=== PATIENT | female | born 1960 | race Caucasian/White ===

== ENCOUNTER 2016-07-29 19:32 | Emergency (ER) | payer OTHER ==
[~2016-07-29] VITALS: Ht 160 cm; Wt 65.9 kg
[2016-07-29 19:37] VITALS: BP 131/74; PULSE 76; RESP 18; O2SAT 99
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
[2016-07-29] MEDS ORDERED: CYCL5TAB PO (21:58)
[2016-07-29] MEDS ORDERED: IBUP800T28 PO (21:59)
== END 2016-07-29 22:23 | disposition home or self-care (01) ==
LOC: EDUNIT# 19:32 → MERGE 19:32 → EDBD 19:32 → SED 19:32
DX: M54.2 Cervicalgia (principal); V86.09XA Driver of other special all-terrain or other off-road motor vehicle injured in traffic accident, initial encounter; Y93.89 Activity, other specified; Y92.410 Unspecified street and highway as the place of occurrence of the external cause; Y99.8 Other external cause status